=== PATIENT | male | born 1980 | race Caucasian/White ===

== ENCOUNTER 2018-01-15 18:31 | Emergency (ER) | payer OTHER ==
[2018-01-15 18:46] VITALS: BP 126/91; PULSE 82; TEMP 98.5; BMI 28.4
--- NOTE | 2018-01-15 19:16 | PDOC ---
History of Present Illness - General History Source: Patient, Spouse Exam Limitations: No Limitations - History of Present Illness Initial Comments: 01/15/18 19:32 The patient is a 37 year old male, accompanied by , with no significant past medical history who presents to the emergency department with a left hand laceration. The patient [place] and [place] a branch. He reports that a protrusion on the branch cut the palmar aspect of his left hand as he released it. He denies any medical history of easy bleed or easy clotting. The patient states that his most recent tetanus was 2 years ago and notes that he is right hand dominant. <Cain Simms - Last Filed: 01/15/18 21:14> <Megan Valdivia - Last Filed: 01/16/18 01:33> - General Chief Complaint: Laceration Stated Complaint: LEFT HAND LAC Time Seen by Provider: 01/15/18 19:16 Past History <Cain Simms - Last Filed: 01/15/18 21:14> - Past Medical History COPD: No Other medical history: DENIES - Suicide/Smoking/Psychosocial Hx Smoking History: Never smoked Hx Alcohol Use: Yes Drug/Substance Use Hx: No Substance Use Type: Alcohol <Megan Valdivia - Last Filed: 01/16/18 01:33> - Past Medical History Allergies/Adverse Reactions: Allergies Allergy/AdvReac Type Severity Reaction Status Date / Time No Known Allergies Allergy Verified 01/15/18 18:32 Home Medications: Ambulatory Orders Cephalexin [Keflex] 500 mg PO TID #9 capsule 01/15/18 Review of Systems - Review of Systems Able to Perform ROS?: Yes Comments:: 01/15/18 19:32 GENERAL/CONSTITUTIONAL: No fever or chills. No weakness. HEAD, EYES, EARS, NOSE AND THROAT: No change in vision. No ear pain or discharge. No sore throat. CARDIOVASCULAR: No chest pain or shortness of breath. RESPIRATORY: No cough, wheezing, or hemoptysis. GASTROINTESTINAL: No nausea, vomiting, diarrhea or constipation. GENITOURINARY: No dysuria, frequency, or change in urination. MUSCULOSKELETAL: (+) Left hand laceration. No neck or back pain. SKIN: No rash NEUROLOGIC: No headache, vertigo, loss of consciousness, or change in strength/ sensation. ENDOCRINE: No increased thirst. No abnormal weight change. HEMATOLOGIC/LYMPHATIC: No anemia, easy bleeding, or history of blood clots. ALLERGIC/IMMUNOLOGIC: No hives or skin allergy. <Cain Simms - Last Filed: 01/15/18 21:14> *Physical Exam - Vital Signs Last Vital Signs Temp Pulse Resp BP Pulse Ox 98.5 F 82 18 126/91 100 01/15/18 18:32 01/15/18 18:32 01/15/18 18:32 01/15/18 18:32 01/15/18 18:32 - Physical Exam Comments: 01/15/18 19:32 GENERAL: Awake, alert, and fully oriented, in no acute distress HEAD: No signs of trauma EYES: PERRLA, EOMI, sclera anicteric, conjunctiva clear ENT: Auricles normal inspection, hearing grossly normal, nares patent, oropharynx clear without exudates. Moist mucosa NECK: Normal ROM, supple, no lymphadenopathy, JVD, or masses EXTREMITIES: (+) 3.5 x 2 cm V shaped laceration to the palmar aspect of the left hand at the base of the third and fourth digits, motor and sensory function intact. Normal range of motion, no edema. No clubbing or cyanosis. No cords. NEUROLOGICAL: Cranial nerves II through XII grossly intact. Normal speech, normal gait SKIN: Warm, Dry, normal turgor, no rashes or lesions noted. <Cain Simms - Last Filed: 01/15/18 21:14> - Vital Signs Last Vital Signs Temp Pulse Resp BP Pulse Ox 98.5 F 82 18 126/91 100 01/15/18 18:32 01/15/18 18:32 01/15/18 18:32 01/15/18 18:32 01/15/18 18:32 <Megan Valdivia - Last Filed: 01/16/18 01:33> Procedures - Laceration/Wound Repair Left Plantar Hand Wound Length: 5.0 to 7.5 cm Wound Explored: clean Wound's Depth, Shape: linear Irrigated w/ Saline: Yes Betadine Prep: No (Hibiclens/ethanol) Anesthesia: 1% Lidocaine Amount of Anesthetic (ccs): 3 Wound Repaired With: Sutures Suture Size/Type: 4:0, nylon Number of Sutures: 10 Layer Closure: No Sterile Dressing Applied: Yes Splint Applied: No Progress: Using sterile technique, left hand laceration prepped using Hibiclens/ethanol solution and sterilely draped. 3 mL of 1% lidocaine infiltrated into the wound for local anesthesia. Wound explored: Depth is full-thickness but no injury to tendons/vascular structure is present. Wound irrigated with 50 mL of sterile normal saline. Wound edges closely apposed and closure obtained remove 10 interrupted sutures of 4-0 nylon. Bacitracin and sterile gauze dressing applied. Patient tolerated procedure well <Megan Valdivia - Last Filed: 01/16/18 01:33> Progress Note - Progress Note Progress Note: Documentation has been prepared under my direction and personally reviewed by me in its entirety. I attest that this documented accurately reflects all work, treatment, procedures and medical decision making performed by me. <Megan Valdivia - Last Filed: 01/16/18 01:33> Medical Decision Making - Medical Decision Making As noted above, this 37-year-old man with no significant past medical history and no history of poor wound healing or resistant organism infection, presents with left hand laceration (palmar aspect). This wound was sustained when sharp edge of tree branch cut the patient's hand as he was throwing the branch. He denies numbness/paresthesias and has full motor strength in the hand. Exam as noted. Procedure note as noted above for closure of the wound. Patient will be started on Keflex 500 mg 3 times a day for 3 days with first dose given here in the emergency room. Patient will return here or see his doctor if area appears to be infected. He will see his doctor or return here on January 22 for evaluation and probable suture removal. <Megan Valdivia - Last Filed: 01/16/18 01:33> *DC/Admit/Observation/Transfer - Attestations Scribe Attestion: 01/15/18 19:32 Documentation prepared by Cain Simms, acting as medical office assistant instructor for Megan Valdivia MD. <Cain Simms - Last Filed: 01/15/18 21:14> <Megan Valdivia - Last Filed: 01/16/18 01:33> Diagnosis at time of Disposition: Hand laceration Qualifiers: Encounter type: initial encounter Foreign body presence: without foreign body Laterality: left Qualified Code(s): S61.412A - Laceration without foreign body of left hand, initial encounter - Discharge Dispostion Disposition: HOME Condition at time of disposition: Stable - Prescriptions Prescriptions: Cephalexin [Keflex] 500 mg PO TID #9 capsule - Patient Instructions Printed Discharge Instructions: How to Care for a Laceration After Repair Additional Instructions: Keep left hand elevated as much as possible overnight Ibuprofen/naproxen/acetaminophen as needed for pain Original dressing in place (as dry as possible) for the next 2 days After bandage removed, Band-Aid/bacitracin during day; open at night for the next 2-3 days Keflex 500 mg 3 times a day for the next 3 days Return or see your doctor if area becomes red/swollen/more painful or red streaking develops Have sutures removed on January 22
[2018-01-15] MEDS ORDERED: CEPHALEXIN MONOHYDRATE 500 MG CAPSULE (UD) PO ONE (20:13)
[2018-01-15] MEDS ORDERED: CEPHALEXIN MONOHYDRATE 500 MG CAPSULE (UD) ONE (20:14)
== END 2018-01-15 20:21 | disposition home or self-care (01) ==
LOC: FER 18:31
PROC: 0HQGXZZ Repair Left Hand Skin, External Approach (ICD-10-PCS; principal; 2018-01-15)
DX: S61.412A Laceration without foreign body of left hand, initial encounter (principal); W26.8XXA Contact with other sharp object(s), not elsewhere classified, initial encounter; Y93.89 Activity, other specified; Y92.89 Other specified places as the place of occurrence of the external cause
CPT/HCPCS: 99283-25

== ENCOUNTER 2018-01-18 21:07 | Emergency (ER) | payer OTHER ==
[2018-01-18 21:14] VITALS: BP 132/87; PULSE 85; TEMP 98.3; BMI 28.3
--- NOTE | 2018-01-18 22:07 | PDOC ---
History of Present Illness - General Chief Complaint: Revisit,Wound Recheck Stated Complaint: LEFT HAND WOUND CHECK Time Seen by Provider: 01/18/18 21:42 History Source: Patient Exam Limitations: No Limitations - History of Present Illness Initial Comments: 01/18/18 22:29 This is a 37-year-old male who comes in complaining of increased swelling and pain in his hand. Patient was here 3 days ago for a hand laceration that was repaired in the emergency department. Patient was discharged home on Keflex. Patient says he has not been taking his Keflex as often as prescribed patient now comes in complaining of increased pain swelling and redness to the area. He denies any fevers or chills. He is otherwise healthy and his tetanus immunization is up-to-date. PAST MEDICAL HISTORY: no significant history PAST SURGICAL HISTORY: no significant history FAMILY HISTORY: no pertinant history SOCIAL HISTORY: Pt lives with family and is employed. MEDICATIONS: reviewed ALLERGIES: As per nursing notes Review of Systems General: No fevers or chills, no weakness, no weight loss HEENT: No change in vision. No sore throat,. No ear pain CardioVascular: No chest pain or shortness of breath Respiratory:No cough, or wheezing. Gastrointestinal: no nausea, vomitting, diarrhea or constipation, No rectal bleeding Genitourinary: No dysuria, hematuria, or frequency Musculoskeletal: Left hand redness pain and swelling as per history of present illness Neurologic: No headache, vertigo, dizziness or loss of consciousness Psychiatric: nor depression Skin: No rashes or easy bruising Endocrine: no increased thirst or abnormal weight change Allergic: no skin or latex allergy All other systems reviewed and normal GENERAL: The patient is awake, alert, and fully oriented, in no acute distress. HEAD: Normal with no signs of trauma. EYES: Pupils equal, round and reactive to light, extraocular movements intact, sclera anicteric, conjunctiva clear. EXTREMITIES: Left hand: There is some swelling and redness of the palm of the hand. There are multiple stitches in the palm of the hand that appear to be healing well there is no purulence from the stitches or dehiscence. There is no ascending lymphangitis. There is no ascending lymphangitis NEUROL warm. GICAL: normal Normal speech, normal gait. grossly intact PSYCH: Normal mood, normal affect. SKIN: Warm, Dry, normal turgor, no rashes or lesions noted. Assessment and plan: This is a 37-year-old male who is 3 days status post laceration repair who now comes in with increased pain redness and swelling in his hand. Patient was given a dose of Zosyn and vancomycin. Patient had a CBC sent with has a normal white count and no left shift. Patient is afebrile and doesn't report any fevers. I will switch patient's antibiotic to Bactrim 2 give MRSA coverage and also give him a hand referral. Patient will be instructed to return if worse in 24 hours and expect to be admitted or if not improved in 48 hours. 01/18/18 23:14 Past History - Past Medical History Allergies/Adverse Reactions: Allergies Allergy/AdvReac Type Severity Reaction Status Date / Time No Known Allergies Allergy Verified 01/18/18 21:09 Home Medications: Ambulatory Orders Cephalexin [Keflex] 500 mg PO TID #9 capsule 01/15/18 Sulfamethoxazole/Trimethoprim [Bactrim DS -] 1 tab PO BID #14 tablet 01/18/18 COPD: No Other medical history: DENIES - Suicide/Smoking/Psychosocial Hx Smoking History: Never smoked Have you smoked in the past 12 months: No Information on smoking cessation initiated: No Hx Alcohol Use: (occasional) Drug/Substance Use Hx: No Substance Use Type: Alcohol *Physical Exam - Vital Signs Last Vital Signs Temp Pulse Resp BP Pulse Ox 98.3 F 85 18 132/87 96 01/18/18 21:07 01/18/18 21:07 01/18/18 21:07 01/18/18 21:07 01/18/18 21:07 ED Treatment Course - LABORATORY CBC & Chemistry Diagram: 01/18/18 22:20 *DC/Admit/Observation/Transfer Diagnosis at time of Disposition: Laceration of hand with infection Qualifiers: Encounter type: subsequent encounter Laterality: left Qualified Code(s): S61.412D - Laceration without foreign body of left hand, subsequent encounter; L08.9 - Local infection of the skin and subcutaneous tissue, unspecified - Discharge Dispostion Disposition: HOME Condition at time of disposition: Stable Decision to Admit order: No - Prescriptions Prescriptions: Sulfamethoxazole/Trimethoprim [Bactrim DS -] 1 tab PO BID #14 tablet - Referrals Referrals: Halprin,Dasia [Primary Care Provider] - - Patient Instructions Additional Instructions: Is going on with Stop taking the Keflex and start taking the Bactrim. You were given antibiotics here in the emergency room tonight so you do not need to start the Bactrim until tomorrow morning. He will take it twice a day for 7 days If you are significantly worse over the next 24 hours you need to return to the emergency room and will need to be admitted for IV antibiotics If you are not better in 48 hours you need to return to the emergency room for reevaluation. I am also giving you the name of a hand specialist that you can follow-up with his phone number is [phone]. Return to the emergency department immediately with ANY new, persistent or worsening symptoms. Continue any medications as previously prescribed by your physician. You should follow up with your primary doctor as soon as possible regarding today's emergency department visit. . Please make sure your doctor reviews the results of your emergency evaluation. Thank you for coming to the Emergency Department today for your care. It was a pleasure to see you today. Please note that your evaluation is INCOMPLETE until you follow-up with your doctor. - Post Discharge Activity
[2018-01-18] MEDS ORDERED: VANCOMYCIN 1 GRAM (PRE-DOCKED) 1,000 MG/250 ML BAG IVPB ONE (22:08)
[2018-01-18] MEDS ORDERED: PIPERACILLIN/TAZOB 3.375 GM 3.375 GM in DEXTROSE 5%-WATER - 50 ML IVPB ONE (22:09)
[2018-01-18] MEDS ORDERED: VANCOMYCIN 1,000 MG VIAL (RESTRICTED TO ID ONLY) ONE (22:27)
[2018-01-18] MEDS ORDERED: PIPERACILLIN/TAZOBACTAM 3.375 GM VIAL IVPB ONE (22:27)
[2018-01-18] MEDS ORDERED: DIPHTH,PERTUSS(ACELL),TET 0.5 ML DISP.SYRIN IM ONE (22:29)
[2018-01-18 22:37] LABS: HEMATOCRIT 44.7 % (35.4-49); HEMOGLOBIN 15.5 GM/dl (11.7-16.9); MCHC 34.6 g/dl (32.0-35.9); MEAN CELL VOLUME 92.4 fl (80-96); PLATELET COUNT 339 K/MM3 (134-434); RBC 4.83 M/mm3 (4.00-5.60); RDW 11.9 % (11.9-15.9); WHITE BLOOD COUNT 8.5 K/mm3 (4.0-10.8)
[2018-01-18 22:38] LABS: BASO % 1.1 % (0-2.0); EOS % 0.9 % (0-4.5); MONO % 7.1 % (3.8-10.2); NEUT % 62.9 % (42.8-82.8)
== END 2018-01-19 00:42 | disposition home or self-care (01) ==
LOC: FER 21:07
DX: L08.9 Local infection of the skin and subcutaneous tissue, unspecified (principal); S61.412D Laceration without foreign body of left hand, subsequent encounter; X58.XXXD Exposure to other specified factors, subsequent encounter; Y93.9 Activity, unspecified
CPT/HCPCS: 36415; 85025; 99282-25